=== PATIENT | female | born 1990 | race Two or more races ===

== ENCOUNTER 2018-09-01 18:19 | Emergency (ER) | payer BC ==
[~2018-09-01] VITALS: Ht 165.1 cm; Wt 56.7 kg
[2018-09-01] MEDS ORDERED: KETO10TA2 PO (22:27)
== END 2018-09-01 22:37 ==
LOC: ER 18:19
DX: S80.01XA Contusion of right knee, initial encounter (principal); W18.39XA Other fall on same level, initial encounter; Y93.02 Activity, running; Y92.89 Other specified places as the place of occurrence of the external cause; Y99.8 Other external cause status

== ENCOUNTER 2018-10-29 12:24 | Emergency (ER) | payer OTHER ==
[~2018-10-29] VITALS: Ht 165.1 cm; Wt 56.7 kg
[~2018-10-29 12:24] MED LIST: KETO10TA2 PO
[2018-10-29] MEDS ORDERED: DICLOFENAC SODI75 MG PO (14:21)
== END 2018-10-29 15:01 | disposition home or self-care (01) ==
LOC: ER 12:24
DX: S13.4XXA Sprain of ligaments of cervical spine, initial encounter (principal); M54.2 Cervicalgia; V49.88XA Car occupant (driver) (passenger) injured in other specified transport accidents, initial encounter; Y93.89 Activity, other specified; Y92.89 Other specified places as the place of occurrence of the external cause; Y99.8 Other external cause status